=== PATIENT | female | born 1975 | race Caucasian/White ===

== ENCOUNTER 2018-05-15 22:09 | Emergency (ER) | payer SELFPAY ==
[~2018-05-15] VITALS: Ht 162.6 cm; Wt 61.2 kg
[2018-05-15 22:13] VITALS: BP 153/90
--- NOTE | 2018-05-15 22:13 | NUR ---
TO BED # 1 AMBULATORY, REPORT GIVEN TO JADE GOOD
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
[2018-05-15] MEDS ORDERED: DIAZEPAM 5 MG TAB PO ONE (23:00)
[2018-05-15] MEDS ORDERED: KETOROLAC 30 MG/ML VIAL IM ONE (23:00)
[2018-05-15 23:35] VITALS: BP 110/81
--- NOTE | 2018-05-15 23:36 | NUR ---
Patient discharged with v/s stable. Written and verbal after care instructions given and explained. Patient alert, oriented and verbalized understanding of instructions. Ambulatory with steady gait. All questions addressed prior to discharge. ID band removed. Patient advised to follow up with PMD. Rx of NAPROSYN, VALIUM given. Patient educated on indication of medication including possible reaction and side effects. Opportunity to ask questions provided and answered.
== END 2018-05-15 23:36 | disposition home or self-care (01) ==
LOC: MED 22:09
DX: S16.1XXA Strain of muscle, fascia and tendon at neck level, initial encounter (principal); M54.9 Dorsalgia, unspecified; V89.2XXA Person injured in unspecified motor-vehicle accident, traffic, initial encounter; Y93.89 Activity, other specified; Y92.89 Other specified places as the place of occurrence of the external cause; Y99.8 Other external cause status
CPT/HCPCS: 81025; 96372; 99283; J1885